=== PATIENT | female | born 1985 | race Hispanic/Latino ===

== ENCOUNTER → 2024-08-07 | Day surgery (SDC) | payer OTHER ==
[~2024-08-07] MED LIST: FENTANYL CITRATE/PF 100MCG/2 ML INJ ONE; MIDAZOLAM HCL 2 MG/2 ML VIAL ONE; PANTOPRAZOLE SO40 MG PO; PROPOFOL IV EMULSION 10 MG/ML 20 ML VIAL ONE
[2024-08-07] MEDS: LACTATED RINGER'S 1,000 ML ONE (15:24)
[2024-08-07 17:40] VITALS: BP 118/76; PULSE 80; RESP 16; O2SAT 98
== END | disposition home or self-care (01) ==
LOC: OR 14:56
PROVIDERS: ATTEND Internal Medicine Gastroenterology
DX: K63.5 Polyp of colon (principal); R10.30 Lower abdominal pain, unspecified; R63.4 Abnormal weight loss; K64.8 Other hemorrhoids; K21.9 Gastro-esophageal reflux disease without esophagitis; K44.9 Diaphragmatic hernia without obstruction or gangrene; Z91.048 Other nonmedicinal substance allergy status; Z01.818 Encounter for other preprocedural examination; Z68.21 Body mass index [BMI] 21.0-21.9, adult
CPT/HCPCS: 45384; 45385; 81025; J2250; J2704; J3010; J7121